=== PATIENT | male | born 1970 | race Caucasian/White ===

== ENCOUNTER → 2019-03-20 | Outpatient (CLI) | payer OTHER | LOC: ULTRA 09:29 | DX: K76.0 Fatty (change of) liver, not elsewhere classified (principal) ==

== ENCOUNTER → 2020-06-03 | Outpatient (CLI) | payer OTHER | LOC: CAT 09:37 | PROVIDERS: ATTEND Family Medicine | DX: Z13.6 Encounter for screening for cardiovascular disorders (principal); I25.10 Atherosclerotic heart disease of native coronary artery without angina pectoris; E78.00 Pure hypercholesterolemia, unspecified ==

== ENCOUNTER → 2020-09-25 | Outpatient (CLI) | payer OTHER | LOC: LAB 11:52 | PROVIDERS: ATTEND Family Medicine | DX: U07.1 COVID-19 (principal) ==

== ENCOUNTER 2021-01-13 04:47 | Emergency (ER) | payer OTHER ==
[~2021-01-13] VITALS: Ht 177.8 cm; Wt 107.0 kg
[2021-01-13] MEDS ORDERED: COZAAR 25 MG TA25 M1 PO (04:53)
[2021-01-13] MEDS ORDERED: VENLAFAXINE H37.5 M2 PO (04:54)
[2021-01-13] MEDS ORDERED: AMITRIPTYLINE H75 M1 PO (04:54)
[2021-01-13] MEDS ORDERED: CLONAZEPAM 0.50.5 M1 PO ×2 (04:54→04:55)
[2021-01-13] MEDS ORDERED: METFORMIN HCL500 M1 PO (04:54)
[2021-01-13] MEDS ORDERED: MELOXICAM15 MG PO (04:55)
[2021-01-13] MEDS ORDERED: FLOMAX0.4 MG PO (06:50)
[2021-01-13 07:09] VITALS: BP 146/82
== END 2021-01-13 07:13 | disposition still patient (30) ==
LOC: ER 04:47
DX: R33.9 Retention of urine, unspecified (principal); I10 Essential (primary) hypertension; Z79.899 Other long term (current) drug therapy

== ENCOUNTER 2021-11-26 22:44 | Emergency (ER) | payer OTHER ==
[~2021-11-26] VITALS: Ht 177.8 cm; Wt 108.9 kg
[~2021-11-26 22:44] MED LIST: AMITRIPTYLINE H75 M1 PO; CLONAZEPAM 0.50.5 M1 PO; COZAAR 25 MG TA25 M1 PO; FLOMAX0.4 MG PO; MELOXICAM15 MG PO; METFORMIN HCL500 M1 PO; VENLAFAXINE H37.5 M2 PO
[2021-11-26] MEDS ORDERED: CRESTOR5 MG PO (23:01)
[2021-11-26] MEDS ORDERED: ASA81BEC PO (23:01)
[2021-11-27] MEDS ORDERED: AUGMENTIN 875-1 EACH PO (01:06)
[2021-11-27 01:22] VITALS: BP 166/99
== END 2021-11-27 01:25 | disposition home or self-care (01) ==
LOC: ER 22:44
DX: S01.511A Laceration without foreign body of lip, initial encounter (principal); I10 Essential (primary) hypertension; Z79.899 Other long term (current) drug therapy; W54.0XXA Bitten by dog, initial encounter; Y93.89 Activity, other specified; Y92.89 Other specified places as the place of occurrence of the external cause; Y99.8 Other external cause status